=== PATIENT | female | born 1990 | race American Indian/Alaskan Native ===

== ENCOUNTER 2021-08-19 21:51 | Emergency (ER) | payer OTHER, MEDICAID ==
[2021-08-19] MEDS ORDERED: diphenhydrAMINE 25 MG CAP PO ONE (23:45)
[2021-08-19] MEDS ORDERED: METOCLOPRAMIDE 10 MG TAB PO ONE (23:45)
[2021-08-20 00:07] LABS: Basophils # (Auto) 0.2 K/mm3 (0.0-0.1); Basophils % (Auto) 2.3 % (0.0-1.8); Eosinophils # (Auto) 0.7 K/mm3 (0.0-0.4); Eosinophils % (Auto) 9.4 % (0.0-4.3); Hematocrit 35.9 % (30.3-42.9); Hemoglobin 12.3 gm/dl (10.1-14.3); Lymphocytes # (Auto) 0.7 K/mm3 (1.2-5.4); Lymphocytes % (Auto) 9.2 % (13.4-35.0); Mean Corpuscular HGB Conc 34 % (30-34); Mean Corpuscular Volume 92 fl (79-97); Monocytes # (Auto) 0.5 K/mm3 (0.0-0.8); Monocytes % (Auto) 6.4 % (0.0-7.3); Platelet Count 190 K/mm3 (140-440); Red Blood Count 3.88 M/mm3 (3.65-5.03); Red Cell Distribution Width 13.3 % (13.2-15.2)
--- NOTE | 2021-08-20 00:12 | Emergency Department Report ---
ED General Adult HPI - General Chief complaint: Nausea/Vomiting/Diarrhea Stated complaint: 16 WEEKS VOMTTING BLOOD Time Seen by Provider: 08/19/21 23:44 Source: patient Mode of arrival: Ambulatory Limitations: No Limitations - History of Present Illness Initial comments: Patient 30-year-old female who is G4, who presents for abdominal pain and pressure to bilateral lower abdomen with one episode of nausea vomiting today. Patient is 16 weeks to this point last menstrual cycle was 04/27/2021. Patient denies fevers or chills there is no vaginal bleeding at this time there is no continued nausea or vomiting. Been no fevers no chills no coughs. [employer] is entering women's care. Symptoms are rated at 4/10 at this time. Patient denies any fall injury or trauma. There is no vaginal discharge , vaginal bleeding and no back pain noted at this time. - Related Data Previous Rx's Medication Instructions Recorded Last Taken Type Doxylamine Succinate/Vit B6 1 each PO Q8H PRN #30 tab 08/20/21 Unknown Rx [Brooke Michele 10-10 mg Tablet] Allergies Allergy/AdvReac Type Severity Reaction Status Date / Time No Known Allergies Allergy Unverified 08/19/21 23:07 ED Review of Systems ROS: Stated complaint: 16 WEEKS VOMTTING BLOOD Other details as noted in HPI Constitutional: denies: chills, fever Eyes: denies: eye pain, eye discharge, vision change ENT: denies: ear pain, throat pain Respiratory: denies: cough, shortness of breath, wheezing Cardiovascular: denies: chest pain, palpitations Endocrine: no symptoms reported Gastrointestinal: abdominal pain, nausea, vomiting. denies: diarrhea, constipation, hematemesis, melena Genitourinary: denies: urgency, dysuria, frequency, hematuria, discharge Musculoskeletal: denies: back pain, joint swelling, arthralgia Skin: denies: rash, lesions Neurological: denies: headache, weakness, paresthesias, vertigo Psychiatric: as per HPI Hematological/Lymphatic: denies: easy bleeding, easy bruising ED Past Medical Hx - Past Medical History Previous Medical History?: No - Medications Home Medications: Home Medications Medication Instructions Recorded Confirmed Last Taken Type Doxylamine Succinate/Vit B6 1 each PO Q8H PRN #30 tab 03/11/22 Unknown Rx [Diclegis Dr 10-10 mg Tablet] ED Physical Exam - General Limitations: No Limitations General appearance: alert, in no apparent distress - Head Head exam: Present: atraumatic, normocephalic - Eye Eye exam: Present: normal appearance, EOMI Pupils: Present: normal accommodation - ENT ENT exam: Present: mucous membranes moist - Neck Neck exam: Present: normal inspection, full ROM. Absent: tenderness - Respiratory Respiratory exam: Present: normal lung sounds bilaterally. Absent: respiratory distress, wheezes, stridor - Cardiovascular Cardiovascular Exam: Present: regular rate, normal rhythm, normal heart sounds. Absent: systolic murmur, diastolic murmur, rubs, gallop - GI/Abdominal GI/Abdominal exam: Present: soft, normal bowel sounds. Absent: distended, tenderness - Rectal Rectal exam: Present: deferred - Extremities Exam Extremities exam: Present: normal inspection, full ROM, normal capillary refill. Absent: tenderness - Back Exam Back exam: Present: normal inspection. Absent: CVA tenderness (R), CVA tenderne ss (L) - Neurological Exam Neurological exam: Present: alert, oriented X3, CN II-XII intact - Psychiatric Psychiatric exam: Present: normal affect, normal mood - Skin Skin exam: Present: warm, dry, intact, normal color. Absent: rash ED Course Vital Signs 08/19/21 23:07 Temperature 98.6 F Pulse Rate 68 Respiratory 18 Rate Blood Pressure 112/68 O2 Sat by Pulse 100 Oximetry ED Medical Decision Making - Lab Data Result diagrams: 08/19/21 23:55 08/19/21 23:55 - Radiology Data Radiology results: report reviewed, image reviewed US OB >= 14 weeks Fetus INDICATION / CLINICAL INFORMATION: abd Pain 16 weeks preg COMPARISON: None available. TECHNIQUE: Using a transcutaneous probe, multiple grayscale, color Doppler, and spectral Doppler images of the uterus and fetus were captured and stored. FINDINGS: Single cephalic fetus with heart rate of 143 bpm is demonstrated. A fundal placenta, grade 0, demonstrates no significant abnormality of the placental margin. The largest pocket of amniotic fluid measures 2.5 cm. Biparietal Diameter = 3.22 cm = 16, 0 weeks, days Head Circumference = 12.4 cm = 16, 2 weeks, days Abdominal Circumference = 10.0 cm cm = 16.0 weeks, days Femur Length = 1.98 cm = 15, 6 weeks, days Average Ultrasound Age (AUA) = 16, 0 weeks, days Estimate clinical gestational age of 16 weeks 0 days. Estimated weight = 141 g. IMPRESSION: 1. No acute pathology. Signer Name: Bette Jerez II, MD Signed: 08/20/2021 1:14 AM Workstation Name: [id number] Transcribed By: MATHEW Dictated By: BETTE JEREZ II, MD Electronically Authenticated By: BETTE JEREZ II, MD Signed Date/Time: 08/20/21113 DD/ 0 TD/TT: - Medical Decision Making Ultrasound OB greater than 14 weeks equals single IUP estimated gestational 16 weeks 0 days, heart rate 143 bpm, UA normal, labs normal. Pt is tolerating po intake without n/v at this time. Plan DC to home follow-up with [employer] as scheduled. Hydrate as directed, return to emergency department should symptoms worsen. Critical care attestation.: If time is entered above; I have spent that time in minutes in the direct care of this critically ill patient, excluding procedure time. ED Disposition Clinical Impression: Nausea and vomiting during prior to 22 weeks gestation, Abdominal pain during in second trimester Disposition: 01 HOME / SELF CARE / HOMELESS Is pt being admited?: No Does the pt Need Aspirin: No Condition: Stable Instructions: Morning Sickness, [id number], Abdominal Pain During Additional Instructions: Take medications as prescribed for nausea vomiting, follow-up with your [employer] doctor in 1 to 2 days. Rehydrate as directed. Return to emergency department should symptoms worsen. Prescriptions: Doxylamine Succinate/Vit B6 [Brooke Michele 10-10 mg Tablet] 1 each PO Q8H PRN #30 tab PRN Reason: Nausea And Vomiting Referrals: PRIMARY CARE, [Primary Care Provider] - 3-5 Days KACIE LARIOS MD [Staff Physician] - 3-5 Days Forms: Work/School Release Form(ED) Time of Disposition: 01:54
[2021-08-20 00:24] LABS: Alanine Aminotransferase 7 units/L (7-56); Albumin 3.8 g/dL (3.9-5); Blood Urea Nitrogen 8 mg/dL (7-17); Calcium 8.5 mg/dL (8.4-10.2); Hemolysis Index 9
[2021-08-20 00:27] LABS: BUN/Creatinine Ratio 16
[2021-08-20 00:35] LABS: Bilirubin,Urine NEG (Negative); Blood,Urine NEG (Negative); Color,Urine Colorless (Yellow); Protein,Urine <15 mg/dL mg/dL (Negative); Urobilinogen,Urine < 2.0 mg/dL (<2.0)
--- NOTE | 2021-08-20 01:19 | Ultrasound Report ---
US OB >= 14 weeks Fetus INDICATION / CLINICAL INFORMATION: abd Pain 16 weeks preg COMPARISON: None available. TECHNIQUE: Using a transcutaneous probe, multiple grayscale, color Doppler, and spectral Doppler imag es of the uterus and fetus were captured and stored. FINDINGS: Single cephalic fetus with heart rate of 143 bpm is demonstrated. A fundal placenta, grade 0, demonstrates no significant abnormality of the placental margin. The largest pocket of amniotic fluid measures 2.5 cm. Biparietal Diameter = 3.22 cm = 16, 0 weeks, days Head Circumference = 12.4 cm = 16, 2 weeks, days Abdominal Circumference = 10.0 cm cm = 16.0 weeks, days Femur Length = 1.98 cm = 15, 6 weeks, days Average Ultrasound Age (AUA) = 16, 0 weeks, days Estimate clinical gestational age of 16 weeks 0 days. Estimated weight = 141 g. IMPRESSION: 1. No acute pathology. Signer Name: Hernando Riley II, MD Signed: 08/20/2021 1:14 AM Workstation Name: [id number]
[2021-08-20 02:08] VITALS: BP 107/43
== END 2021-08-20 02:10 | disposition home or self-care (01) ==
LOC: ED 21:51
DX: O21.9 Vomiting of pregnancy, unspecified (principal); O26.892 Other specified pregnancy related conditions, second trimester; R10.9 Unspecified abdominal pain; Z3A.22 22 weeks gestation of pregnancy
CPT/HCPCS: 36415; 76805; 80053; 81001; 84702; 85025; 99284